=== PATIENT | female | born 1990 | race Caucasian/White ===

== ENCOUNTER 2018-03-06 08:04 | Day surgery (SDC) | payer BC ==
[~2018-03-06 08:04] MED LIST: EPHEDrine SULFATE 50 MG/5 ML SYG
[2018-03-06] MEDS ORDERED: SOD CHLORIDE 0.9% 1,000 ML IV (08:30)
[2018-03-06] MEDS ORDERED: CLINDAMYCIN 600 MG/D5W (PMX) 50 ML IVPB ×2 (08:30→12:05)
[2018-03-06] MEDS ORDERED: OXYCODONE/ACETAMINOPHEN (5/325) TAB PO ×2 (09:00)
[2018-03-06] MEDS ORDERED: HYDROmorphONE (0.2 MG/ML) 10ML SYG IV ×3 (09:00)
[2018-03-06] MEDS ORDERED: METOCLOPRAMIDE 10 MG INJ IV (09:00)
[2018-03-06] MEDS ORDERED: DIPHENHYDRAMINE 50 MG INJ IV (09:00)
[2018-03-06] MEDS ORDERED: EPHEDrine SULFATE 50 MG/5 ML SYG IV (09:00)
[2018-03-06] MEDS ORDERED: MEPERIDINE 25 MG INJ IV (09:00)
[2018-03-06] MEDS ORDERED: LABETALOL HCL 20MG INJ IV (09:00)
[2018-03-06] MEDS ORDERED: FENTAnyl 50 MCG/ML VIAL IV ×3 (09:00)
[2018-03-06] MEDS ORDERED: ONDANSETRON 4 MG INJ IV (09:00)
[2018-03-06] MEDS ORDERED: FENTAnyl 50 MCG/ML VIAL (10:55)
[2018-03-06] MEDS ORDERED: MIDAZOLAM 1 MG/ML 2 ML INJ (10:55)
[2018-03-06] MEDS ORDERED: PROPOFOL 20 ML (10:55)
[2018-03-06] MEDS: BUPIVACAINE 0.25%/EPI (SDV) 30 ML INJ (11:55)
[2018-03-06] MEDS ORDERED: ROCURONIUM 50 MG INJ (12:05)
[2018-03-06] MEDS ORDERED: KETOROLAC 30 MG INJ (12:05)
[2018-03-06] MEDS ORDERED: DEXAMETHASONE 4 MG/ML 1 ML INJ (12:05)
[2018-03-06] MEDS ORDERED: ONDANSETRON 4 MG INJ (12:05)
[2018-03-06] MEDS ORDERED: ACETAMINOPHEN 1000MG/100ML IV 100 ML (12:05)
[2018-03-06] MEDS ORDERED: METOCLOPRAMIDE 10 MG INJ (12:05)
[2018-03-06] MEDS ORDERED: GLYCOPYRROLATE 0.4 MG INJ (12:57)
[2018-03-06] MEDS ORDERED: NEOSTIGMINE 3 MG/3 ML SYRINGE (12:57)
[2018-03-06] MEDS ORDERED: KETOROLAC 30 MG INJ IV (13:30)
[2018-03-06] MEDS ORDERED: IBUPROFEN 600 MG TAB PO (13:30)
== END 2018-03-06 14:48 | disposition home or self-care (01) ==
LOC: SDS 08:04
DX: N60.31 Fibrosclerosis of right breast (principal)
CPT/HCPCS: 19125; 88307